=== PATIENT | male | born 1960 | race Two or more races ===

== ENCOUNTER 2023-03-12 10:23 | Emergency (ER) | payer OTHER ==
[~2023-03-12] VITALS: Ht 190.5 cm; Wt 93.4 kg
[2023-03-12] MEDS ORDERED: ROSUVASTATIN CA40 MG PO (10:44)
[2023-03-12] MEDS ORDERED: LOSARTAN POTASS25 MG PO (10:44)
[2023-03-12] MEDS ORDERED: AVAPRO75 MG PO (10:44)
[2023-03-12] MEDS ORDERED: NORFLEX100MG PO (11:48)
[2023-03-12] MEDS ORDERED: MEDROLPACK PO (11:48)
[2023-03-12] MEDS ORDERED: KETO10TA2 PO (11:48)
== END 2023-03-12 12:07 | disposition home or self-care (01) ==
LOC: ER 10:23
DX: M62.838 Other muscle spasm (principal)